=== PATIENT | male | born 1950 | race Caucasian/White ===

== ENCOUNTER 2020-07-17 01:22 | Inpatient (IN) | payer MEDICARE ==
[~2020-07-17] VITALS: Ht 170.2 cm; Wt 62.6 kg
[2020-07-17] MEDS ORDERED: LORazepam 2 MG TABLET PO ONE (01:45)
[2020-07-17 02:00] LABS: BASOPHILS % (AUTO) 0.6 % (0.0-2.0); EOSINOPHILS % (AUTO) 0.5 % (1.0-6.0); HEMATOCRIT 33.8 % (41-53); HEMOGLOBIN 11.8 g/dL (13.5-17.5); LYMPHOCYTES # (AUTO) 2.7 K/uL (1.0-4.8); LYMPHOCYTES % (AUTO) 23.9 % (22.0-44.0); MEAN CORPUSCULAR HEMOGLOBIN 31.1 pg (26.0-34.0); MEAN CORPUSCULAR HGB CONC 34.7 G/dL (31.0-37.0); MEAN CORPUSCULAR VOLUME 90 fL (80-100); MONOCYTES # (AUTO) 0.7 K/uL (0.1-1.0); MONOCYTES % (AUTO) 6.1 % (2.0-9.0); NEUTROPHILS # (AUTO) 7.9 K/uL (1.8-7.7); NEUTROPHILS % (AUTO) 68.9 % (40.0-70.0); PLATELET COUNT (AUTO) 359 K/uL (150-450); RED BLOOD CELL COUNT(AUTO) 3.78 MIL/uL (4.50-5.90); RED CELL DISTRIBUTION WIDTH 15.8 % (11.5-14.5)
[2020-07-17 02:08] LABS: ANION GAP 9 mmol/L (8-16); CARBON DIOXIDE 24 mmol/L (22-29); CHLORIDE 96 mmol/L (98-107); CREATININE 1.03 mg/dL (0.60-1.30); GLOMERULAR FILTR. RATE CALC > 60 mL/min (>60); GLUCOSE,RANDOM 92 mg/dL (70-110); POTASSIUM 3.8 mmol/L (3.5-5.1); SODIUM SERUM 129 mmol/L (136-145); UREA NITROGEN, BLOOD 20 mg/dL (7-18)
[2020-07-17 02:14] LABS: ALANINE AMINOTRANSFERASE 36 U/L (12-78); ALBUMIN 3.4 g/dL (3.4-5.0); ALKALINE PHOSPHATASE 96 U/L (46-116); ASPARTATE AMINOTRANSFERASE 30 U/L (15-37); BILIRUBIN,TOTAL 0.5 mg/dL (0.1-1.0); TOTAL PROTEIN, SERUM 7.7 g/dL (6.4-8.2)
[2020-07-17 02:19] LABS: ACETAMINOPHEN < 2 mcg/mL (10-30)
[2020-07-17 02:27] LABS: SALICYLATE < 2.8 mg/dL (2.8-20.0)
[2020-07-17 02:32] LABS: COVID AG,FIA SOURCE NASOPHARYNGEAL
[2020-07-17 02:40] LABS: APPEARANCE,URINE CLOUDY (CLEAR); BILIRUBIN,URINE NEGATIVE (NEGATIVE); GLUCOSE, URINE (UA) NEGATIVE (NEGATIVE); KETONES,URINE TRACE mg/dL (NEGATIVE); LEUKOCYTE ESTERASE ,URINE SMALL (NEGATIVE); NITRATE,URINE NEGATIVE (NEGATIVE); OCCULT BLOOD,URINE LARGE (NEGATIVE); PH,URINE 5.5 (5.0-8.0); PROTEIN,URINE SEE CONFIRM (NEGATIVE); UROBILINOGEN,URINE 0.2 mg/dL (<=1.0)
[2020-07-17 02:41] LABS: LIPASE 57 U/L (73-393)
[2020-07-17 02:45] LABS: AMPHET/METH SCREEN,URINE NEGATIVE (NEGATIVE); BARBITURATE SCREEN, URINE NEGATIVE (NEGATIVE); BENZODIAZEPINES SCREEN,URINE NEGATIVE (NEGATIVE); CANNABINOID SCREEN,URINE NEGATIVE (NEGATIVE); COCAINE SCREEN,URINE NEGATIVE (NEGATIVE); METHADONE SCREEN, URINE NEGATIVE (NEGATIVE); OPIATE SCREEN,URINE POSITIVE (NEGATIVE)
[2020-07-17 02:46] LABS: PHENCYCLIDINE SCREEN,URINE NEGATIVE (NEGATIVE)
[2020-07-17 02:50] LABS: SULFOSALICYLIC ACID,URINE 3+ (Negative)
[2020-07-17 02:51] LABS: RBC,URINE >100 /HPF (0-2)
[2020-07-17 02:52] LABS: BACTERIA,URINE Few /HPF (None Seen)
[2020-07-17] MEDS ORDERED: LORazepam 2 MG TABLET PO PRN (03:45)
[2020-07-17] MEDS ORDERED: ZOLPIDEM TARTRATE 10 MG TABLET PO PRN (03:45)
[2020-07-17] MEDS ORDERED: CEPHALEXIN MONOHYDRATE 500 MG CAPSULE PO ONE (03:45)
[2020-07-17] MEDS ORDERED: HALOPERIDOL 5 MG TABLET PO PRN (03:45)
[2020-07-17] MEDS ORDERED: PNEUMOCOCCAL VACCINE POLYVALENT 0.5 ML VIAL [PPSV23] IM ONE (06:00)
[2020-07-17] MEDS ORDERED: INFLUENZA VIRUS VACCINE QVS 2020-21 (6MO+)/PF 60 MCG/0.5 ML SYRINGE IM ONE (06:00)
[2020-07-17 06:39] VITALS: BP 121/68
[2020-07-17 08:39] VITALS: BP 132/61
[2020-07-17] MEDS ORDERED: NICOTINE 14 MG/24 HOUR PATCH TD PRN (09:00)
[2020-07-17] MEDS ORDERED: DOCUSATE SODIUM 100 MG CAPSULE PO PRN (09:00)
[2020-07-17] MEDS ORDERED: ACETAMINOPHEN 325 MG TABLET PO PRN (09:00)
[2020-07-17] MEDS ORDERED: ALBUTEROL SULFATE HFA 90 MCG/PUFF 8 GM INHALER IH PRN (09:00)
[2020-07-17] MEDS ORDERED: CloNIDine HCL 0.1 MG TABLET PO PRN (09:00)
[2020-07-17] MEDS ORDERED: IBUPROFEN 400 MG TABLET PO PRN (09:00)
[2020-07-17] MEDS ORDERED: ONDANSETRON HCL 4 MG TABLET PO PRN (09:00)
[2020-07-17] MEDS ORDERED: BACITRACIN 28 GM OINTMENT TP SCH (09:00)
[2020-07-17] MEDS ORDERED: LOPERAMIDE HCL 2 MG CAPSULE PO PRN (09:00)
[2020-07-17] MEDS ORDERED: TAMSULOSIN HCL 0.4 MG CAPSULE PO SCH (09:00)
[2020-07-17] MEDS ORDERED: GuaiFENesin/D-METHORPHAN [SUGAR-FREE] 200-20MG/10 ML SYRUP UDCUP PO PRN (09:00)
[2020-07-17] MEDS ORDERED: MAG HYDROX/AL HYDROX/SIMETH ES 30 ML SUSPENSION UDCUP PO PRN (09:00)
[2020-07-17] MEDS ORDERED: MAGNESIUM HYDROXIDE SUSPENSION 30 ML UDCUP PO PRN (09:00)
[2020-07-17] MEDS ORDERED: PETROLATUM,WHITE 28 GM JELLY TP PRN (09:00)
[2020-07-17] MEDS ORDERED: CEPHALEXIN MONOHYDRATE 500 MG CAPSULE PO SCH (09:00)
== END 2020-07-17 15:54 | disposition home or self-care (01) | DRG 690 ==
LOC: EMS 01:22 → B2X 03:30
PROVIDERS: ADMIT Psychiatry & Neurology Psychiatry; ATTEND Psychiatry & Neurology Psychiatry
DX: N39.0 Urinary tract infection, site not specified (principal); E87.1 Hypo-osmolality and hyponatremia; R45.851 Suicidal ideations; D64.9 Anemia, unspecified; D72.829 Elevated white blood cell count, unspecified; I10 Essential (primary) hypertension; F29 Unspecified psychosis not due to a substance or known physiological condition; N40.0 Benign prostatic hyperplasia without lower urinary tract symptoms; F41.9 Anxiety disorder, unspecified; Z28.21 Immunization not carried out because of patient refusal; R33.9 Retention of urine, unspecified; Z20.828 Contact with and (suspected) exposure to other viral communicable diseases
CPT/HCPCS: 51701; 87086; 87426; G0480; G0481; 36415-L1; 36415-TC; 71045-TC

== ENCOUNTER 2020-07-17 09:48 | Inpatient (IN) | payer MEDICARE, MEDICAID ==
[~2020-07-17] VITALS: Ht 177.8 cm; Wt 66.7 kg
[2020-07-17 11:06] LABS: BASOPHILS % (AUTO) 0.7 % (0.0-2.0); EOSINOPHILS % (AUTO) 0.7 % (1.0-6.0); HEMATOCRIT 35.4 % (41-53); LYMPHOCYTES # (AUTO) 2.3 K/uL (1.0-4.8); LYMPHOCYTES % (AUTO) 24.9 % (22.0-44.0); MEAN CORPUSCULAR HGB CONC 33.9 G/dL (31.0-37.0); MEAN CORPUSCULAR VOLUME 91 fL (80-100); MONOCYTES # (AUTO) 0.5 K/uL (0.1-1.0); MONOCYTES % (AUTO) 4.9 % (2.0-9.0); NEUTROPHILS # (AUTO) 6.4 K/uL (1.8-7.7); NEUTROPHILS % (AUTO) 68.8 % (40.0-70.0); PLATELET COUNT (AUTO) 342 K/uL (150-450); RED BLOOD CELL COUNT(AUTO) 3.88 MIL/uL (4.50-5.90)
[2020-07-17] MEDS ORDERED: TAMSULOSIN HCL 0.4 MG CAPSULE PO ONE (11:15)
[2020-07-17 11:19] LABS: ANION GAP 10 mmol/L (8-16); CALCIUM, TOTAL 9.4 mg/dL (8.8-10.5); CARBON DIOXIDE 24 mmol/L (22-29); CHLORIDE 102 mmol/L (98-107); CREATININE 0.98 mg/dL (0.60-1.30); GLOMERULAR FILTR. RATE CALC > 60 mL/min (>60); GLUCOSE,RANDOM 85 mg/dL (70-110); POTASSIUM 4.4 mmol/L (3.5-5.1); SODIUM SERUM 136 mmol/L (136-145); UREA NITROGEN, BLOOD 19 mg/dL (7-18)
[2020-07-17 11:28] LABS: ALANINE AMINOTRANSFERASE 34 U/L (12-78); ALBUMIN 3.3 g/dL (3.4-5.0); ALKALINE PHOSPHATASE 93 U/L (46-116); ASPARTATE AMINOTRANSFERASE 36 U/L (15-37); BILIRUBIN,TOTAL 0.5 mg/dL (0.1-1.0); TOTAL PROTEIN, SERUM 7.5 g/dL (6.4-8.2)
[2020-07-17 11:55] LABS: APPEARANCE,URINE CLOUDY (CLEAR); BILIRUBIN,URINE NEGATIVE (NEGATIVE); GLUCOSE, URINE (UA) NEGATIVE (NEGATIVE); KETONES,URINE NEGATIVE (NEGATIVE); LEUKOCYTE ESTERASE ,URINE NEGATIVE (NEGATIVE); NITRATE,URINE NEGATIVE (NEGATIVE); OCCULT BLOOD,URINE LARGE (NEGATIVE); PROTEIN,URINE TRACE (NEGATIVE); UROBILINOGEN,URINE 0.2 mg/dL (<=1.0)
[2020-07-17 11:59] LABS: BACTERIA,URINE None Seen /HPF (None Seen); RBC,URINE >100 /HPF (0-2); WBC,URINE None Seen /HPF (0-5)
[2020-07-17] MEDS ORDERED: LORazepam 1 MG TABLET PO ONE (12:45)
[2020-07-17] MEDS ORDERED: BISACODYL 10 MG RECTAL RECTAL SUPPOSITORY PR PRN (13:00)
[2020-07-17] MEDS ORDERED: DOCUSATE SODIUM 100 MG CAPSULE PO PRN (13:00)
[2020-07-17] MEDS ORDERED: ONDANSETRON HCL 4 MG/2 ML VIAL IVP PRN (13:00)
[2020-07-17] MEDS ORDERED: ALBUTEROL SULFATE 2.5 MG/0.5 ML NEB SOLUTION NEB PRN (13:00)
[2020-07-17] MEDS ORDERED: IPRATROPIUM BROMIDE 0.5 MG/2.5 ML NEB SOLUTION NEB PRN (13:00)
[2020-07-17] MEDS ORDERED: 0.9% SODIUM CHLORIDE 10 ML SYRINGE IVP PRN ×2 (13:00→13:15)
[2020-07-17] MEDS ORDERED: ACETAMINOPHEN 325 MG TABLET PO PRN (13:15)
[2020-07-17] MEDS: ACETAMINOPHEN 325 MG TABLET PO PRN (20:21)
[2020-07-17 21:50] VITALS: BP 136/76
[2020-07-18 04:00] VITALS: BP 154/68
[2020-07-18] MEDS: MULTIVITAMINS WITH MINERALS, THERAPEUTIC TABLET PO SCH (08:09)
[2020-07-18] MEDS: THIAMINE 100 MG TABLET PO SCH (08:09)
[2020-07-18] MEDS: FOLIC ACID 1 MG TABLET PO SCH (08:09)
[2020-07-18] MEDS: PANTOPRAZOLE SODIUM 40 MG DR TABLET PO SCH (08:09)
[2020-07-18 08:51] VITALS: BP 144/61
[2020-07-18 09:00] LABS: BASOPHILS % (AUTO) 0.7 % (0.0-2.0); EOSINOPHILS % (AUTO) 1.2 % (1.0-6.0); HEMATOCRIT 32.4 % (41-53); HEMOGLOBIN 11.2 g/dL (13.5-17.5); LYMPHOCYTES % (AUTO) 29.9 % (22.0-44.0); MEAN CORPUSCULAR HEMOGLOBIN 31.5 pg (26.0-34.0); MEAN CORPUSCULAR HGB CONC 34.6 G/dL (31.0-37.0); MEAN CORPUSCULAR VOLUME 91 fL (80-100); MONOCYTES # (AUTO) 0.4 K/uL (0.1-1.0); MONOCYTES % (AUTO) 5.8 % (2.0-9.0); NEUTROPHILS # (AUTO) 4.2 K/uL (1.8-7.7); NEUTROPHILS % (AUTO) 62.4 % (40.0-70.0); PLATELET COUNT (AUTO) 296 K/uL (150-450); RED BLOOD CELL COUNT(AUTO) 3.56 MIL/uL (4.50-5.90); RED CELL DISTRIBUTION WIDTH 15.8 % (11.5-14.5)
[2020-07-18 09:26] LABS: ALANINE AMINOTRANSFERASE 30 U/L (12-78); ALBUMIN 2.7 g/dL (3.4-5.0); ANION GAP 7 mmol/L (8-16); CARBON DIOXIDE 27 mmol/L (22-29); CHLORIDE 99 mmol/L (98-107); CREATININE 0.83 mg/dL (0.60-1.30); GLOMERULAR FILTR. RATE CALC > 60 mL/min (>60); GLUCOSE,RANDOM 117 mg/dL (70-110); POTASSIUM 4.4 mmol/L (3.5-5.1); SODIUM SERUM 133 mmol/L (136-145); UREA NITROGEN, BLOOD 20 mg/dL (7-18)
[2020-07-18 10:02] LABS: ALKALINE PHOSPHATASE 88 U/L (46-116); ASPARTATE AMINOTRANSFERASE 30 U/L (15-37); BILIRUBIN,TOTAL 0.4 mg/dL (0.1-1.0); FREE T4 (FREE THYROXINE) 1.21 ng/dL (0.76-1.46); THYROID STIMULATING HORMONE 0.93 uIU/mL (0.36-3.74); TOTAL PROTEIN, SERUM 6.8 g/dL (6.4-8.2)
[2020-07-18 13:00] VITALS: BP 153/76
[2020-07-18 13:30] LABS: APPEARANCE,URINE TURBID (CLEAR); BILIRUBIN,URINE NEGATIVE (NEGATIVE); GLUCOSE, URINE (UA) NEGATIVE (NEGATIVE); KETONES,URINE NEGATIVE (NEGATIVE); LEUKOCYTE ESTERASE ,URINE TRACE (NEGATIVE); NITRATE,URINE NEGATIVE (NEGATIVE); PROTEIN,URINE TRACE (NEGATIVE); UROBILINOGEN,URINE 0.2 mg/dL (<=1.0)
[2020-07-18 13:54] LABS: BACTERIA,URINE None Seen /HPF (None Seen); OCCULT BLOOD,URINE MODERATE (NEGATIVE); WBC,URINE 0-2 /HPF (0-5)
[2020-07-18 13:55] LABS: URIC ACID CRYSTALS,URINE Many /LPF (None Seen)
[2020-07-18 15:59] VITALS: BP 149/75
[2020-07-18] MEDS: PHENAZOPYRIDINE HCL 100 MG TABLET PO SCH (20:12)
[2020-07-18 20:16] VITALS: BP 143/65
[2020-07-18] MEDS: ACETAMINOPHEN 325 MG TABLET PO PRN (20:16)
[2020-07-18] MEDS ORDERED: TAMSULOSIN HCL 0.4 MG CAPSULE PO SCH (21:00)
[2020-07-18 23:40] VITALS: BP 142/76
[2020-07-19 04:00] VITALS: BP 140/78
[2020-07-19 08:21] VITALS: BP 140/72
[2020-07-19] MEDS: PANTOPRAZOLE SODIUM 40 MG DR TABLET PO SCH (08:50)
[2020-07-19] MEDS: FOLIC ACID 1 MG TABLET PO SCH (08:50)
[2020-07-19] MEDS: MULTIVITAMINS WITH MINERALS, THERAPEUTIC TABLET PO SCH (08:51)
[2020-07-19] MEDS: PHENAZOPYRIDINE HCL 100 MG TABLET PO SCH ×2 (08:51→19:53)
[2020-07-19] MEDS: THIAMINE 100 MG TABLET PO SCH (08:51)
[2020-07-19] MEDS ORDERED: MAGNESIUM HYDROXIDE SUSPENSION 30 ML UDCUP PO PRN (11:30)
[2020-07-19] MEDS ORDERED: TAMSULOSIN HCL 0.4 MG CAPSULE PO ONE (11:45)
[2020-07-19 12:13] VITALS: BP 166/77
[2020-07-19 16:05] VITALS: BP 135/71
[2020-07-19 20:05] VITALS: BP 151/81
[2020-07-19] MEDS ORDERED: TAMSULOSIN HCL 0.4 MG CAPSULE PO SCH (21:00)
[2020-07-19 23:36] VITALS: BP 147/82
[2020-07-20 04:55] VITALS: BP 145/87
[2020-07-20 08:06] VITALS: BP 144/85
[2020-07-20] MEDS: PHENAZOPYRIDINE HCL 100 MG TABLET PO SCH ×2 (08:31→20:15)
[2020-07-20] MEDS: FOLIC ACID 1 MG TABLET PO SCH (08:31)
[2020-07-20] MEDS: THIAMINE 100 MG TABLET PO SCH (08:31)
[2020-07-20] MEDS: MULTIVITAMINS WITH MINERALS, THERAPEUTIC TABLET PO SCH (08:31)
[2020-07-20] MEDS: PANTOPRAZOLE SODIUM 40 MG DR TABLET PO SCH (08:31)
[2020-07-20] MEDS ORDERED: FLUO-191 PO (10:55)
[2020-07-20 12:58] VITALS: BP 135/82
[2020-07-20] MEDS: FLUoxetine HCL 20 MG CAPSULE PO SCH (14:00)
[2020-07-20 16:05] VITALS: BP 156/84
[2020-07-20 20:10] VITALS: BP 142/68
[2020-07-20] MEDS ORDERED: TAMSULOSIN HCL 0.4 MG CAPSULE PO SCH (21:00)
[2020-07-21 00:13] VITALS: BP 153/81
[2020-07-21] MEDS: ACETAMINOPHEN 325 MG TABLET PO PRN ×2 (00:46→08:29)
[2020-07-21 05:04] VITALS: BP 152/88
[2020-07-21 08:08] VITALS: BP 139/72
[2020-07-21] MEDS: PHENAZOPYRIDINE HCL 100 MG TABLET PO SCH (08:29)
[2020-07-21] MEDS: FLUoxetine HCL 20 MG CAPSULE PO SCH (08:30)
[2020-07-21] MEDS: FOLIC ACID 1 MG TABLET PO SCH (08:30)
[2020-07-21] MEDS: MULTIVITAMINS WITH MINERALS, THERAPEUTIC TABLET PO SCH (08:30)
[2020-07-21] MEDS: PANTOPRAZOLE SODIUM 40 MG DR TABLET PO SCH (08:30)
[2020-07-21] MEDS: THIAMINE 100 MG TABLET PO SCH (08:30)
== END 2020-07-21 12:30 | disposition home or self-care (01) | DRG 696 ==
LOC: EMS 09:51 → 6N 12:57
PROVIDERS: ADMIT Internal Medicine; ATTEND Internal Medicine
DX: R33.9 Retention of urine, unspecified (principal); E87.1 Hypo-osmolality and hyponatremia; N39.0 Urinary tract infection, site not specified; R45.851 Suicidal ideations; N40.0 Benign prostatic hyperplasia without lower urinary tract symptoms; F25.1 Schizoaffective disorder, depressive type
CPT/HCPCS: 51702; 76770; 84145; 84439; 84443

== ENCOUNTER 2020-09-08 12:54 | Emergency (ER) | payer MEDICAID, MEDICARE ==
[~2020-09-08] VITALS: Ht 177.8 cm; Wt 72.3 kg
[~2020-09-08 12:54] MED LIST: FLUO-191 PO
[2020-09-08 13:05] VITALS: BP 110/63
== END 2020-09-08 13:40 | disposition left against medical advice (07) ==
LOC: EMS 12:56
DX: F10.29 Alcohol dependence with unspecified alcohol-induced disorder (principal); Z53.21 Procedure and treatment not carried out due to patient leaving prior to being seen by health care provider; Y90.9 Presence of alcohol in blood, level not specified

== ENCOUNTER 2021-01-04 01:33 | Emergency (ER) | payer MEDICARE ==
[~2021-01-04] VITALS: Ht 177.8 cm; Wt 79.5 kg
[2021-01-04] MEDS ORDERED: DiphenhydrAMINE HCL 50 MG/ML VIAL IVP STA (02:13)
[2021-01-04] MEDS ORDERED: LORazepam 2 MG/ML VIAL IVP ONE (02:15)
[2021-01-04] MEDS ORDERED: METOCLOPRAMIDE HCL 5 MG/ML 2 ML VIAL IVP ONE (02:15)
[2021-01-04 02:49] LABS: ANION GAP 26 mmol/L (8-16); CARBON DIOXIDE 14 mmol/L (22-29); CHLORIDE 98 mmol/L (98-107); CREATININE 1.19 mg/dL (0.60-1.30); GLOMERULAR FILTR. RATE CALC > 60 mL/min (>60); GLUCOSE,RANDOM 60 mg/dL (70-110); POTASSIUM 3.7 mmol/L (3.5-5.1); SODIUM SERUM 138 mmol/L (136-145); UREA NITROGEN, BLOOD 28 mg/dL (7-18)
[2021-01-04 02:52] LABS: BASOPHILS % (AUTO) 0.4 % (0.0-2.0); EOSINOPHILS % (AUTO) 0.4 % (1.0-6.0); HEMATOCRIT 45.1 % (41-53); LYMPHOCYTES # (AUTO) 5.3 K/uL (1.0-4.8); LYMPHOCYTES % (AUTO) 43.1 % (22.0-44.0); MEAN CORPUSCULAR HEMOGLOBIN 29.4 pg (26.0-34.0); MEAN CORPUSCULAR HGB CONC 33.3 G/dL (31.0-37.0); MEAN CORPUSCULAR VOLUME 88 fL (80-100); MONOCYTES # (AUTO) 0.4 K/uL (0.1-1.0); MONOCYTES % (AUTO) 3.4 % (2.0-9.0); NEUTROPHILS # (AUTO) 6.5 K/uL (1.8-7.7); NEUTROPHILS % (AUTO) 52.7 % (40.0-70.0); PLATELET COUNT (AUTO) 216 K/uL (150-450); RED BLOOD CELL COUNT(AUTO) 5.12 MIL/uL (4.50-5.90); RED CELL DISTRIBUTION WIDTH 14.7 % (11.5-14.5)
[2021-01-04 02:53] LABS: ALANINE AMINOTRANSFERASE 66 U/L (12-78); ALBUMIN 4.1 g/dL (3.4-5.0); ALKALINE PHOSPHATASE 110 U/L (46-116); ASPARTATE AMINOTRANSFERASE 130 U/L (15-37)
[2021-01-04] MEDS ORDERED: SODIUM CHLORIDE 0.9% 2,000 ML IV ONE (04:15)
[2021-01-04] MEDS ORDERED: PERTUSS(ACELL),DIPH,TET VAC/PF 0.5 ML SYRINGE IM. ONE (04:45)
[2021-01-04 05:22] LABS: APPEARANCE,URINE CLEAR (CLEAR); BILIRUBIN,URINE NEGATIVE (NEGATIVE); GLUCOSE, URINE (UA) NEGATIVE (NEGATIVE); KETONES,URINE >=80 mg/dL (NEGATIVE); LEUKOCYTE ESTERASE ,URINE NEGATIVE (NEGATIVE); NITRATE,URINE NEGATIVE (NEGATIVE); OCCULT BLOOD,URINE MODERATE (NEGATIVE); PH,URINE 5.5 (5.0-8.0); PROTEIN,URINE POS 1+ (NEGATIVE); UROBILINOGEN,URINE 0.2 mg/dL (<=1.0)
[2021-01-04 05:26] LABS: AMPHET/METH SCREEN,URINE NEGATIVE (NEGATIVE); BARBITURATE SCREEN, URINE NEGATIVE (NEGATIVE); BENZODIAZEPINES SCREEN,URINE NEGATIVE (NEGATIVE); CANNABINOID SCREEN,URINE NEGATIVE (NEGATIVE); COCAINE SCREEN,URINE POSITIVE (NEGATIVE); METHADONE SCREEN, URINE NEGATIVE (NEGATIVE); OPIATE SCREEN,URINE NEGATIVE (NEGATIVE)
[2021-01-04 05:27] LABS: PHENCYCLIDINE SCREEN,URINE NEGATIVE (NEGATIVE)
[2021-01-04 05:29] LABS: BACTERIA,URINE Few /HPF (None Seen); WBC,URINE 0-2 /HPF (0-5)
[2021-01-04] MEDS ORDERED: KETOROLAC TROMETHAMINE 30 MG/ML VIAL IVP ONE (08:30)
[2021-01-04 09:16] VITALS: BP 141/85
== END 2021-01-04 09:17 | disposition home or self-care (01) ==
LOC: EMS 01:35
DX: S01.111A Laceration without foreign body of right eyelid and periocular area, initial encounter (principal); F32.9 Major depressive disorder, single episode, unspecified; F10.10 Alcohol abuse, uncomplicated; W01.0XXA Fall on same level from slipping, tripping and stumbling without subsequent striking against object, initial encounter; Y93.01 Activity, walking, marching and hiking; Y92.098 Other place in other non-institutional residence as the place of occurrence of the external cause; Y99.8 Other external cause status; Y90.7 Blood alcohol level of 200-239 mg/100 ml
CPT/HCPCS: 36415; 70450; 72125; 80053; 80307; 81001; 83930; 83935; 85025; 96361; 96374; 96375; 99285; G0480; J1200; J1885; J2060; J2765; J7030; 90715

== ENCOUNTER 2021-03-07 12:44 | Emergency (ER) | payer MEDICARE ==
[~2021-03-07] VITALS: Ht 177.8 cm; Wt 75.0 kg
[2021-03-07 14:36] VITALS: BP 148/80
== END 2021-03-07 14:56 | disposition home or self-care (01) ==
LOC: EMS 13:27
DX: G89.29 Other chronic pain (principal); F25.9 Schizoaffective disorder, unspecified; F32.9 Major depressive disorder, single episode, unspecified; F41.9 Anxiety disorder, unspecified; F11.90 Opioid use, unspecified, uncomplicated; Z76.0 Encounter for issue of repeat prescription
CPT/HCPCS: 99281; 99283

== ENCOUNTER 2021-03-08 19:46 | Emergency (ER) | payer MEDICARE ==
[~2021-03-08] VITALS: Ht 177.8 cm; Wt 77.3 kg
[2021-03-08 20:20] LABS: GLUCOSE,POINT OF CARE 105 MG/DL (70-110)
[2021-03-08 21:41] LABS: BASOPHILS % (AUTO) 0.4 % (0.0-2.0); EOSINOPHILS % (AUTO) 0.8 % (1.0-6.0); HEMATOCRIT 40.3 % (41-53); HEMOGLOBIN 13.4 g/dL (13.5-17.5); LYMPHOCYTES # (AUTO) 2.2 K/uL (1.0-4.8); LYMPHOCYTES % (AUTO) 25.3 % (22.0-44.0); MEAN CORPUSCULAR HEMOGLOBIN 29.2 pg (26.0-34.0); MEAN CORPUSCULAR HGB CONC 33.1 G/dL (31.0-37.0); MEAN CORPUSCULAR VOLUME 88 fL (80-100); MONOCYTES % (AUTO) 11.6 % (2.0-9.0); NEUTROPHILS # (AUTO) 5.3 K/uL (1.8-7.7); NEUTROPHILS % (AUTO) 61.9 % (40.0-70.0); PLATELET COUNT (AUTO) 230 K/uL (150-450); RED BLOOD CELL COUNT(AUTO) 4.58 MIL/uL (4.50-5.90)
[2021-03-08 21:52] LABS: PROTHROMBIN TIME 10.9 SEC (9.4-11.6)
[2021-03-08 21:53] LABS: CALCIUM, TOTAL 9.7 mg/dL (8.8-10.5); CREATININE 2.3 mg/dL (0.60-1.30); POTASSIUM 3.7 mmol/L (3.5-5.1)
[2021-03-08 22:23] LABS: ALBUMIN 4.4 g/dL (3.4-5.0); BILIRUBIN,TOTAL 0.8 mg/dL (0.1-1.0); TOTAL PROTEIN, SERUM 8.3 g/dL (6.4-8.2)
[2021-03-08] MEDS ORDERED: ASPIRIN 81 MG CHEWABLE TABLET PO ONE (23:45)
[2021-03-09 00:42] VITALS: BP 115/72
== END 2021-03-09 00:23 | disposition left against medical advice (07) ==
LOC: EMS 19:51
DX: F41.9 Anxiety disorder, unspecified (principal); F25.9 Schizoaffective disorder, unspecified; F32.9 Major depressive disorder, single episode, unspecified; G89.29 Other chronic pain; R51.9 Headache, unspecified; F11.90 Opioid use, unspecified, uncomplicated; Z76.0 Encounter for issue of repeat prescription
CPT/HCPCS: 36415; 70450; 71250; 74022; 74176; 80053; 82550; 82962; 83690; 83880; 84484; 85025; 85610; 93005; 99291; G0480; 51702; 72192; 74150

== ENCOUNTER 2021-03-09 02:10 | Emergency (ER) | payer MEDICARE ==
[~2021-03-09] VITALS: Ht 170.2 cm; Wt 72.7 kg
[2021-03-09 07:02] LABS: APPEARANCE,URINE CLOUDY (CLEAR); GLUCOSE, URINE (UA) NEGATIVE (NEGATIVE); KETONES,URINE TRACE mg/dL (NEGATIVE); LEUKOCYTE ESTERASE ,URINE NEGATIVE (NEGATIVE); NITRATE,URINE NEGATIVE (NEGATIVE); OCCULT BLOOD,URINE NEGATIVE (NEGATIVE); PROTEIN,URINE TRACE (NEGATIVE); UROBILINOGEN,URINE 0.2 mg/dL (<=1.0)
[2021-03-09 07:05] LABS: BILIRUBIN,URINE PRELIM. POSITIVE (NEGATIVE)
[2021-03-09 07:08] LABS: AMPHET/METH SCREEN,URINE NEGATIVE (NEGATIVE); BARBITURATE SCREEN, URINE NEGATIVE (NEGATIVE); BENZODIAZEPINES SCREEN,URINE NEGATIVE (NEGATIVE); CANNABINOID SCREEN,URINE NEGATIVE (NEGATIVE); COCAINE SCREEN,URINE POSITIVE (NEGATIVE); METHADONE SCREEN, URINE NEGATIVE (NEGATIVE); OPIATE SCREEN,URINE POSITIVE (NEGATIVE)
[2021-03-09 07:09] LABS: PHENCYCLIDINE SCREEN,URINE NEGATIVE (NEGATIVE)
[2021-03-09 07:10] VITALS: BP 137/82
[2021-03-09 07:21] LABS: BACTERIA,URINE None Seen /HPF (None Seen); RBC,URINE None Seen /HPF (0-2); SQUAMOUS EPITHELIAL CELL,UR Few /LPF (None Seen); WBC,URINE None Seen /HPF (0-5)
== END 2021-03-09 07:40 | disposition home or self-care (01) ==
LOC: EMS 02:10
DX: R07.89 Other chest pain (principal); E07.9 Disorder of thyroid, unspecified; M19.90 Unspecified osteoarthritis, unspecified site; R94.4 Abnormal results of kidney function studies; R51.9 Headache, unspecified; F11.90 Opioid use, unspecified, uncomplicated
CPT/HCPCS: 81001; 84484; 99285